=== PATIENT | male | born 1960 | race Caucasian/White ===

== ENCOUNTER 2017-04-28 01:17 | Emergency (ER) | payer OTHER, BC ==
[2017-04-28 01:38] VITALS: BP 143/91
[2017-04-28] MEDS ORDERED: Metoclopramide 10 MG/2 ML SDV IVPUSH ONE (01:51)
--- NOTE | 2017-04-28 01:58 | EDM.PDOC ---
ED HPI GENERAL MEDICAL PROBLEM - General Chief Complaint: Gastrointestinal Problem Stated Complaint: ILLNESS Time Seen by Provider: 04/28/17 01:45 Source of Information: Reports: Patient, Family, Old Records History Limitations: Reports: No Limitations - History of Present Illness INITIAL COMMENTS - FREE TEXT/NARRATIVE: 57 yo male recently had a large bowel re-anastomosis. He had been on a liquid diet with supplemental TPN. On 04/27 he was seen at [facility] in follow up of that procedure and he was given the OK to advance his diet. Now he has nausea and vomiting. Nausea not controlled with Zofran orally. Not having any significant abdominal pain, thinks his abdomen may be a bit more distended. Had lab work 04/25/17 done that was normal. Onset: Gradual Onset Date: 04/27/17 Duration: Hour(s):, Getting Worse Location: Reports: Abdomen Quality: Reports: Other (No significant pain.) Severity: Moderate Improves with: Reports: Other (Not eating). Denies: Eating Worsens with: Reports: Eating Context: Reports: Other (Recent advancement of his diet after colon re- anastomosis) Associated Symptoms: Reports: Loss of Appetite, Nausea/Vomiting Treatments TURPENTINER: Reports: Other (see below) (Zofran orally) abdominal pain Pain Score (Numeric/FACES): 6 - Related Data Allergies Allergy/AdvReac Type Severity Reaction Status Date / Time No Known Allergies Allergy Verified 04/28/17 01:30 Home Meds: Home Meds Omeprazole 20 mg PO DAILY 09/13/13 [History] Ondansetron [Zofran] 4 mg PO ASDIRECTED 04/28/17 [History] Prochlorperazine Maleate [Prochlorperazine Maleate] 5 mg PO Q6H PRN 04/28/17 [ History] Past Medical History HEENT History: Reports: Impaired Vision Other HEENT History: wears glasses Cardiovascular History: Reports: None Respiratory History: Reports: Pneumothorax Other Respiratory History: Diaphragmatic hernia. Pneumonia versus Atelectasis. Hemothorax Gastrointestinal History: Reports: Colon Polyp, GERD, Hiatal Hernia Genitourinary History: Reports: None Musculoskeletal History: Reports: None Neurological History: Reports: None Psychiatric History: Reports: None Endocrine/Metabolic History: Reports: None Hematologic History: Reports: Anemia Immunologic History: Reports: None Oncologic (Cancer) History: Reports: None Dermatologic History: Reports: None - Infectious Disease History Infectious Disease History: Reports: Chicken Pox - Past Surgical History Head Surgeries/Procedures: Reports: None HEENT Surgical History: Reports: None Cardiovascular Surgical History: Reports: None GI Surgical History: Reports: Colonoscopy, Colostomy, EGD, Hernia Repair/Other, Other (See Below) Other GI Surgeries/Procedures: colonostomy reversal surgery April 07 2017 Endocrine Surgical History: Reports: None Neurological Surgical History: Reports: None Musculoskeletal Surgical History: Reports: None Oncologic Surgical History: Reports: None Dermatological Surgical History: Reports: None Social & Family History - Family History Family Medical History: Noncontributory - Tobacco Use Smoking Status *Q: Never Smoker Second Hand Smoke Exposure: No - Caffeine Use Caffeine Use: Reports: Coffee, Soda - Alcohol Use Days Per Week of Alcohol Use: 0 - Recreational Drug Use Recreational Drug Use: No - Living Situation & Occupation Living situation: Reports: ED ROS GENERAL - Review of Systems Review Of Systems: See Below Constitutional: Reports: No Symptoms HEENT: Reports: No Symptoms Respiratory: Reports: No Symptoms Cardiovascular: Reports: No Symptoms Endocrine: Reports: No Symptoms GI/Abdominal: Reports: Decreased Appetite, Nausea, Vomiting. Denies: Abdominal Pain, Black Stool, Bloody Stool, Constipation, Diarrhea, Difficulty Swallowing, Distension, Hematemesis, Hematochezia, Melena, Stool Incontinence : Reports: No Symptoms Musculoskeletal: Reports: No Symptoms Skin: Reports: No Symptoms Neurological: Reports: No Symptoms Psychiatric: Reports: No Symptoms ED EXAM, GI/ABD - Physical Exam Exam: See Below Exam Limited By: No Limitations General Appearance: Alert, WD/WN, No Apparent Distress Eyes: Bilateral: Normal Appearance Ears: Normal External Exam, Normal Canal, Hearing Grossly Normal Nose: Normal Inspection, Normal Mucosa, No Blood Throat/Mouth: Normal Inspection, Normal Lips, Normal Oropharynx, Normal Voice, No Airway Compromise Head: Atraumatic, Normocephalic Neck: Normal Inspection Respiratory/Chest: No Respiratory Distress, Lungs Clear, Normal Breath Sounds Cardiovascular: Regular Rate, Rhythm GI/Abdominal Exam: Soft, Non-Tender, No Distention, Abnormal Bowel Sounds ( decreased ), Other (surgical scars present). No: Distended, Guarding, Rigid, Rebound, Tender Back Exam: Normal Inspection. No: CVA Tenderness (R), CVA Tenderness (L) Extremities: Normal Inspection Neurological: Alert, Oriented, CN II-XII Intact, Normal Cognition, No Motor/ Sensory Deficits Psychiatric: Normal Affect, Normal Mood Skin Exam: Warm, Dry, Intact, Normal Color, No Rash Lymphatic: No Adenopathy Course - Vital Signs Last Recorded V/S: Last Vital Signs Temp 36.6 C 04/28/17 01:32 Pulse 71 04/28/17 01:32 Resp 17 04/28/17 01:32 BP 143/91 H 04/28/17 01:32 Pulse Ox 98 04/28/17 01:32 - Orders/Labs/Meds Orders: Active Orders 24 hr Category Date Time Status Abdomen 1V Upright [CR] Stat Exams 04/28/17 01:52 Taken Meds: Medications Discontinued Medications Generic Name Dose Route Start Last Admin Trade Name Isrrael PRN Reason Stop Dose Admin Metoclopramide HCl 10 mg 04/28/17 01:51 04/28/17 01:57 Reglan IVPUSH 04/28/17 01:52 10 mg ONETIME ONE Administration - Radiology Interpretation Free Text/Narrative:: Upright abdominal X-ray-air fluid levels consistent with small bowel ileus. Departure - Departure Time of Disposition: 02:35 Disposition: Home, Self-Care 01 Condition: Fair Clinical Impression: Adynamic ileus Nausea & vomiting Qualifiers: Vomiting type: unspecified Vomiting Intractability: non-intractable Qualified Code(s): R11.2 - Nausea with vomiting, unspecified - Discharge Information Referrals: Curt Burnham MD [Primary Care Provider] - Forms: ED Department Discharge - My Orders Last 24 Hours: My Active Orders 04/28/17 01:52 Abdomen 1V Upright [CR] Stat - Assessment/Plan Last 24 Hours: My Active Orders 04/28/17 01:52 Abdomen 1V Upright [CR] Stat
--- NOTE | 2017-04-28 09:13 | CR ---
Abdomen 1V Upright HISTORY: Abdominal pain. Prior anastomosis. COMPARISON: CT scan 09/11/2016. FINDINGS: There are air-fluid levels in the mid abdomen and pelvis. Distal small bowel obstruction co uld give this appearance mild ileus as well. Would recommend follow-up plain films based on clinical symptomatology.
== END 2017-04-28 02:52 | disposition home or self-care (01) ==
LOC: JP.ED 01:17
DX: K56.0 Paralytic ileus (principal); R11.2 Nausea with vomiting, unspecified; K21.9 Gastro-esophageal reflux disease without esophagitis; Z79.899 Other long term (current) drug therapy; Z98.890 Other specified postprocedural states
CPT/HCPCS: 74000; 96374; 99284; J2765

== ENCOUNTER 2020-11-15 13:57 | Emergency (ER) | payer BC, OTHER ==
--- NOTE | 2020-11-15 14:01 | EDM.PDOC ---
ED HPI GENERAL MEDICAL PROBLEM - General Chief Complaint: Upper Extremity Injury/Pain Stated Complaint: SMASHED LT PINKY FINGER Time Seen by Provider: 11/15/20 14:10 Source of Information: Reports: Patient, Old Records, RN History Limitations: Reports: No Limitations - History of Present Illness INITIAL COMMENTS - FREE TEXT/NARRATIVE: 60 yo male pinched his distal L 5th finger partially avulsing some of the tissue in that area. He is not sure about his last tetanus. Had self limited bleeding before arrival. Onset: Today, Sudden Onset Date: 11/15/20 Duration: Minutes: Location: Reports: Upper Extremity, Left Quality: Reports: Throbbing Severity: Mild Improves with: Reports: Other (time) Worsens with: Reports: Other (touching wound) Context: Reports: Trauma Associated Symptoms: Reports: No Other Symptoms Treatments HAND STRIPER: Reports: Other (see below) (none) - Related Data Allergies Allergy/AdvReac Type Severity Reaction Status Date / Time No Known Allergies Allergy Verified 11/15/20 14:10 Home Meds: Home Meds NK [No Known Home Meds] 11/15/20 [History] Past Medical History HEENT History: Reports: Impaired Vision Other HEENT History: wears glasses Cardiovascular History: Reports: None Respiratory History: Reports: Pneumothorax Other Respiratory History: Diaphragmatic hernia. Pneumonia versus Atelectasis. Hemothorax Gastrointestinal History: Reports: Colon Polyp, GERD, Hiatal Hernia Genitourinary History: Reports: None Musculoskeletal History: Reports: None Neurological History: Reports: None Psychiatric History: Reports: None Endocrine/Metabolic History: Reports: None Hematologic History: Reports: Anemia Immunologic History: Reports: None Oncologic (Cancer) History: Reports: None Dermatologic History: Reports: None - Infectious Disease History Infectious Disease History: Reports: Chicken Pox - Past Surgical History Head Surgeries/Procedures: Reports: None HEENT Surgical History: Reports: None Cardiovascular Surgical History: Reports: None GI Surgical History: Reports: Colonoscopy, Colostomy, EGD, Hernia Repair/Other, Other (See Below) Other GI Surgeries/Procedures: colonostomy reversal surgery April 07 2017 Endocrine Surgical History: Reports: None Neurological Surgical History: Reports: None Musculoskeletal Surgical History: Reports: None Oncologic Surgical History: Reports: None Dermatological Surgical History: Reports: None Social & Family History - Family History Family Medical History: No Pertinent Family History - Caffeine Use Caffeine Use: Reports: Coffee, Soda - Living Situation & Occupation Living situation: Reports: Review of Systems - Review of Systems Review Of Systems: See Below Constitutional: Reports: No Symptoms Musculoskeletal: Reports: Other (L 5th finger injury) Skin: Reports: Wound (distal L 5th finger) Neurological: Reports: No Symptoms ED EXAM, GENERAL - Physical Exam Exam: See Below Exam Limited By: No Limitations General Appearance: Alert, WD/WN, No Apparent Distress Extremities: No Pedal Edema, Other (L 5th finger with flap laceration distally) Neurological: Alert, Oriented, CN II-XII Intact, Normal Cognition, No Motor/Sensory Deficits Psychiatric: Normal Affect, Normal Mood Skin Exam: Warm, Dry, Normal Color, No Rash, Wound/Incision (flap laceration distal L 5th finger, no active bleeding. ) ED TRAUMA EXTREMITY PROCEDURES - Laceration/Wound Repair Left Distal Digit - 5th (Baby) Lac/Wound Length In cm: 1.7 Appearance: Subcutaneous, Irregular Distal NVT: Neuro & Vascular Intact, No Tendon Injury Anesthetic Type: Digital Local Anesthesia - Lidocaine (Xylocaine): 2% Plain Local Anesthetic Volume: 5cc Skin Prep: Saline Closed With: Sutures Suture Size: 5-0 # of Sutures: 5 Suture Type: Nylon Drain Placement: No Sterile Dressing Applied: Nurse Tetanus Status Addressed: Yes Complications: No Course - Vital Signs Last Recorded V/S: Last Vital Signs Temp 36.0 C L 11/15/20 14:15 Pulse 75 11/15/20 14:15 Resp 14 11/15/20 14:15 BP 148/96 H 11/15/20 14:15 Pulse Ox 98 11/15/20 14:15 - Orders/Labs/Meds Orders: Active Orders 24 hr Category Date Time Status Vaccines to be Administered [RC] PER UNIT ROUTINE Care 11/15/20 14:09 Active Fingers Fifth Digit Lt F4 [CR] Stat Exams 11/15/20 13:59 Taken Meds: Medications Discontinued Medications Generic Name Dose Route Start Last Admin Trade Name Jesseq PRN Reason Stop Dose Admin Bacitracin 1 dose 11/15/20 14:10 11/15/20 14:19 Bacitracin Oint 1 Gm U/D Packet TOP 11/15/20 14:11 1 dose ONETIME ONE Administration Diphtheria/Tetanus/Acell Pertussis 0.5 ml 11/15/20 14:09 11/15/20 14:19 Diphtheria,Pertussis(Acell),Tetanus Vaccine 0.5 Ml Syringe IM 11/15/20 14:10 0.5 ml .ONCE ONE Administration Lidocaine HCl 5 ml 11/15/20 14:09 11/15/20 14:19 Lidocaine 2% 20 Ml Mdv SUBCUT 11/15/20 14:10 5 ml ONETIME ONE Administration - Radiology Interpretation Free Text/Narrative:: L 5th finger X-ray-no fx Departure - Departure Time of Disposition: 15:08 Disposition: Home, Self-Care 01 Condition: Fair Clinical Impression: Finger laceration Qualifiers: Encounter type: initial encounter Finger: little finger Damage to nail status: without damage Foreign body presence: without foreign body Laterality: left Qualified Code(s): S61.217A - Laceration without foreign body of left little finger without damage to nail, initial encounter - Discharge Information *PRESCRIPTION DRUG MONITORING PROGRAM REVIEWED*: Not Applicable *COPY OF PRESCRIPTION DRUG MONITORING REPORT IN PATIENT ASHTYN: Not Applicable Referrals: Curt Burnham MD [Primary Care Provider] - Forms: ED Department Discharge Additional Instructions: Clean wound twice daily with soap and water. Dry. Apply Bacitracin and a new dressing. Elevate today. Acetaminophen for pain relief. Stitches out in 9 days. Recheck for signs of infection. Sepsis Event Note (ED) - Focused Exam Vital Signs: Vital Signs Temp Pulse Resp BP Pulse Ox 11/15/20 14:15 36.0 C L 75 14 148/96 H 98 - My Orders Last 24 Hours: My Active Orders 11/15/20 13:59 Fingers Fifth Digit Lt F4 [CR] Stat 11/15/20 14:09 Vaccines to be Administered [RC] PER UNIT ROUTINE - Assessment/Plan Last 24 Hours: My Active Orders 11/15/20 13:59 Fingers Fifth Digit Lt F4 [CR] Stat 11/15/20 14:09 Vaccines to be Administered [RC] PER UNIT ROUTINE
[2020-11-15] MEDS ORDERED: Lidocaine 2% 20 ML MDV SUBCUT ONE (14:09)
[2020-11-15] MEDS ORDERED: Bacitracin Oint 1 GM U/D Packet TOP ONE (14:10)
[2020-11-15 14:16] VITALS: BP 148/96; PULSE 75
[2020-11-15] MEDS: Diphtheria,Pertussis(Acell),Tetanus Vaccine 0.5 ML Syringe IM ONE ×2 (14:19→15:44)
--- NOTE | 2020-11-17 09:17 | CR ---
Fingers Fifth Digit Lt F4 CLINICAL HISTORY: Crush injury FINDINGS: No fracture or dislocation is identified in the fifth digit. IMPRESSION: Negative
== END 2020-11-15 15:48 | disposition home or self-care (01) ==
LOC: JP.ED 13:57
DX: S61.217A Laceration without foreign body of left little finger without damage to nail, initial encounter (principal); W45.8XXA Other foreign body or object entering through skin, initial encounter
CPT/HCPCS: 12001; 73140-26-F4; 73140-F4; 90715; 99282; 99283-25

== ENCOUNTER 2021-12-18 12:16 | Emergency (ER) | payer BC ==
[2021-12-18 12:29] VITALS: BP 142/87; PULSE 121
[2021-12-18] MEDS: Sodium Chloride 0.9% 1,000 ML IV SCH (13:34)
[2021-12-18 14:13] LABS: CORONAVIRUS COVID-19 NAA NEGATIVE (NEGATIVE)
== END 2021-12-18 15:10 | disposition home or self-care (01) ==
LOC: JP.ED 12:16
DX: A08.4 Viral intestinal infection, unspecified (principal); Z20.822 Contact with and (suspected) exposure to COVID-19
CPT/HCPCS: 0241U; 36415; 80053; 83605; 85025; 87046; 87177; 87209; 87493; 87899; 89055; 99282; 99284; J7030